=== PATIENT | male | born 1985 | race Caucasian/White ===

== ENCOUNTER 2016-03-06 19:24 | Emergency (ER) | payer OTHER ==
[~2016-03-06] VITALS: Ht 190.5 cm; Wt 104.5 kg
[~2016-03-06 19:24] MED LIST: TRM50T PO
[2016-03-06] MEDS ORDERED: HYDROmorphone 1 MG/ML (DILAUDID) SYRINGE IM ONE (20:15)
[2016-03-06] MEDS ORDERED: PROMETHAZINE 25 MG/ML (PHENERGAN) 1 ML VIAL IM ONE (20:15)
[2016-03-06] MEDS ORDERED: ED- AMOXICILLIN/CLAVULONATE 875MG-125MG (AUGMENTIN) 3 TABLETS/BTL PO ONE (21:25)
[2016-03-06] MEDS ORDERED: ED- HYDROcodone/ACETAMINOPHEN 5MG/325MG (NORCO) 6 TABLETS/BTL PO ONE (21:25)
[2016-03-06] MEDS ORDERED: AMOX1TAB12 PO (21:28)
--- NOTE | 2016-03-06 21:30 | NUR ---
Pt states that his headache is better at this time.
[2016-03-06 21:42] VITALS: BP 130/68
--- NOTE | 2016-03-07 08:20 | Diagnostic Imaging Report ---
PROCEDURE: CT head without contrast and CT sinuses with contrast. TECHNIQUE: Routine noncontrast CT images were obtained through the head and sinuses. Coronal reformats of the sinuses were also performed and reviewed. INDICATION: Headache, dizziness COMPARISON: None available FINDINGS: No intracranial hemorrhage. 2.7 x 2.5 cm retrocerebellar CSF density structure is identified. No significant associated mass effect. No additional intracranial mass, mass effect, midline shift, herniation hydrocephalus, or extra-axial fluid collection. No definite CT evidence of an acute ischemic infarction. Visualized orbits are unremarkable. Polyp versus mucous retention cyst within the right sphenoid sinus. Polyp versus mucous retention cyst within the right maxillary sinus. Minimal mucosal thickening within the left maxillary sinus. Mucosal thickening and fluid is present within scattered left-sided ethmoid air cells. The frontal sinuses are clear. Mastoid air cells are clear. No facial fracture. Narrowing of the left ostiomeatal complex secondary to mucosal thickening. No suspicious radiopaque foreign body. IMPRESSION: 1. No acute intracranial abnormality. 2. Mild paranasal sinus mucosal thickening with associated small polyps and/or retention cyst. 3. Retrocerebellar cyst. This may relate to an arachnoid cyst versus tiana cisterna magna. Agree with preliminary interpretation. Dictated by: Dictated on workstation # [id number]
== END 2016-03-06 21:40 | disposition home or self-care (01) ==
LOC: ED 19:25
DX: J01.10 Acute frontal sinusitis, unspecified (principal); J01.30 Acute sphenoidal sinusitis, unspecified
CPT/HCPCS: 70450; 70486; 76376; 96372; 99282; J1170; J2550; 99283